=== PATIENT | male | born 1945 | race African-American/Black ===

== ENCOUNTER 2016-12-03 12:00 | Inpatient (IN) | payer BC, MEDICARE ==
[2016-12-03] VITALS (20 sets, daily range): BP systolic 120–187; BP diastolic 62–94
[~2016-12-03] VITALS: Ht 180.3 cm; Wt 74.0 kg
[2016-12-03] MEDS ORDERED: BISACODYL 10 MG SUPP PR PRN (13:15)
[2016-12-03] MEDS ORDERED: ACETAMINOPHEN TAB 650MG DOSE (2X325MG) PO PRN (13:15)
[2016-12-03] MEDS ORDERED: ONDANSETRON 4MG/2ML VIAL (J2405) IV PRN (13:15)
[2016-12-03] MEDS ORDERED: NORCO, ANEXSIA 5/325MG TABLET (HYDROcodone/ACETAMINOPHEN) PO PRN (13:15)
[2016-12-03] MEDS ORDERED: LEVALBUTEROL 1.25 MG/0.5 ML CONCENTRATE NEB NEB PRN (13:15)
[2016-12-03] MEDS ORDERED: METO100T PO (13:33)
[2016-12-03] MEDS ORDERED: METO50TA2 PO (13:33)
[2016-12-03] MEDS ORDERED: PRED10TA PO (13:34)
[2016-12-03] MEDS ORDERED: ASPI81TA7 PO (13:39)
[2016-12-03] MEDS ORDERED: LORA10TA2 PO (13:39)
[2016-12-03] MEDS ORDERED: MAGN400T2 PO (13:39)
[2016-12-03] MEDS ORDERED: POTA20TA PO (13:39)
[2016-12-03] MEDS ORDERED: NEXI40CA PO (13:39)
[2016-12-03] MEDS ORDERED: NITR4TASL SL (13:39)
[2016-12-03] MEDS ORDERED: FLOM5CAP PO (13:39)
[2016-12-03] MEDS ORDERED: HYDR25TAB PO (13:39)
[2016-12-03] MEDS ORDERED: LOSA100T36 PO (13:39)
[2016-12-03] MEDS ORDERED: GABA-279 PO (13:39)
[2016-12-03] MEDS ORDERED: ATOR40TA PO (13:39)
[2016-12-03 14:13] LABS: DIFF SLIDE NUMBER 240; MEAN CORPUSCULAR HEMOGLOBIN 29.5 pg (27.0-33.0); MEAN CORPUSCULAR HGB CONC 31.7 g/dl (32.0-36.5); MEAN CORPUSCULAR VOLUME 93.1 fl (80.0-96.0); PLATELET COUNT, AUTOMATED 351 k/mm3 (150-450); RED CELL DISTRIBUTION WIDTH 15.2 % (11.5-14.5); WHITE BLOOD COUNT 28.7 K/mm3 (4.0-10.0)
[2016-12-03 14:32] LABS: ANION GAP 6 MEQ/L (8-16); BLOOD UREA NITROGEN 18 MG/DL (7-18); CALCIUM LEVEL 8.4 MG/DL (8.8-10.2); CARBON DIOXIDE LEVEL 28 MEQ/L (21-32); CHLORIDE LEVEL 104 MEQ/L (98-107); CREATININE FOR GFR 1.01 MG/DL (0.70-1.30); GLOMERULAR FILTRATION RATE > 60.0 (>49); GLUCOSE, FASTING 99 MG/DL (80-110); POTASSIUM SERUM 4.3 MEQ/L (3.5-5.1); SODIUM LEVEL 138 MEQ/L (136-145)
[2016-12-03 14:41] LABS: ABG BASE EXCESS 3.2 (-2.0-2.0); ABG HCO3 26.5 MEQ/L (22.0-26.0); ABG PARTIAL PRESSURE CO2 35.3 mmHg (35.0-45.0); ABG PARTIAL PRESSURE O2 61.2 mmHg (75.0-100.0); ABG STANDARD HCO3 27.3 MEQ/L (22.0-26.0); ABG TOTAL CO2 27.6 MEQ/L (23.0-31.0); ABG pH (ARTERIAL) 7.493 UNITS (7.350-7.450)
[2016-12-03] MEDS: LEVALBUTEROL 1.25 MG/0.5 ML CONCENTRATE NEB NEB SCH ×2 (14:41→21:11)
[2016-12-03] MEDS ORDERED: FLUMAZENIL 0.5 MG/5 ML VIAL As Ordered ONE (15:47)
[2016-12-03] MEDS ORDERED: MIDAZOLAM INJ 2 MG/2 ML VIAL (J2250) As Ordered ONE (15:48)
[2016-12-03] MEDS ORDERED: LIDOCAINE 1% MDV 20ML VIAL As Ordered ONE (15:49)
[2016-12-03] MEDS ORDERED: KETOROLAC 30 MG/ML VIAL (J1885) As Ordered ONE (16:39)
[2016-12-03] MEDS ORDERED: MIDAZOLAM INJ 2 MG/2 ML VIAL (J2250) IV ONE (17:00)
[2016-12-03] MEDS ORDERED: KETOROLAC 30 MG/ML VIAL (J1885) IV ONE (17:00)
[2016-12-03] MEDS ORDERED: LIDOCAINE 1% MDV 20ML VIAL SC ONE (17:00)
[2016-12-03] MEDS ORDERED: NITROGLYCERIN 0.4 MG SUBL TABLET SL PRN (17:15)
[2016-12-03 18:25] LABS: RBC PLEURAL FLUID 461 (<10mm3 cells/uL); TNC PLEURAL FLUID 22255 cells/uL (0-20)
[2016-12-03 18:27] LABS: BF DIFF IF INDICATED? YES (NO)
[2016-12-03 18:45] LABS: LDH, BODY FLUID 1117 U/L (NOT ESTABLISHED); TOTAL PROTEIN, BODY FLUID 4.5 G/DL (NOT ESTABLISHED)
--- NOTE | 2016-12-03 18:57 | REP ---
AP PORTABLE CHEST: 12/03/2016: No prior studies available. Clinical history: Status post chest tube. Findings: AP seated portable chest AT 5:01 PM shows a left base chest tube. There is a small left subpulmonic pneumothorax. No apical pneumothorax. Subsegmental atelectatic or consolidated changes in the left base above the subpulmonic pneumothorax. Right lung without infiltrate, effusion or pneumothorax. The cardiomediastinal silhouette unremarkable. Oxygen tubing over the right upper chest. Bones with some degenerative change. Signed by Jb Pollard MD 12/04/2016 05:21 P
[2016-12-03 19:20] LABS: CC BF DIFF EXAM UNSPUN
[2016-12-03] MEDS: PERCOCET 5MG/325MG TAB PO PRN (20:21)
[2016-12-03] MEDS: ATORVASTATIN 20 MG TAB PO SCH (21:46)
[2016-12-03] MEDS: GABAPENTIN 100 MG CAP PO SCH (21:46)
[2016-12-03] MEDS: MAGNESIUM OXIDE 400 MG TAB (MAG-OX) PO SCH (21:46)
[2016-12-03] MEDS: HEPARIN SOD (PORCINE) 5000 UNITS/ML VIAL SC SCH (21:46)
[2016-12-03] MEDS: POTASSIUM CHLORIDE 10 MEQ SR TABLET PO SCH (21:46)
[2016-12-03] MEDS: TAMSULOSIN 0.4 MG CAP PO SCH (21:47)
[2016-12-03] MEDS: METOPROLOL TARTRATE 100 MG TAB PO SCH (21:47)
[2016-12-03] MEDS: DOCUSATE SODIUM 100 MG CAP PO SCH (21:47)
[2016-12-03] MEDS: KETOROLAC 30 MG/ML VIAL (J1885) IV SCH (22:24)
[2016-12-04] VITALS (7 sets, daily range): BP systolic 108–149; BP diastolic 55–76
[2016-12-04] MEDS: LEVALBUTEROL 1.25 MG/0.5 ML CONCENTRATE NEB NEB SCH ×4 (00:25→20:52)
[2016-12-04] MEDS: PERCOCET 5MG/325MG TAB PO PRN ×5 (01:03→21:22)
[2016-12-04] MEDS: KETOROLAC 30 MG/ML VIAL (J1885) IV SCH ×4 (04:27→23:18)
[2016-12-04 06:15] LABS: DIFF SLIDE NUMBER 79; MEAN CORPUSCULAR HEMOGLOBIN 29.3 pg (27.0-33.0); MEAN CORPUSCULAR HGB CONC 31.3 g/dl (32.0-36.5); MEAN CORPUSCULAR VOLUME 93.5 fl (80.0-96.0); PLATELET COUNT, AUTOMATED 328 k/mm3 (150-450); RED CELL DISTRIBUTION WIDTH 15.2 % (11.5-14.5); WHITE BLOOD COUNT 28.4 K/mm3 (4.0-10.0)
[2016-12-04 06:18] LABS: ABG BASE EXCESS 3.1 (-2.0-2.0); ABG HCO3 27.4 MEQ/L (22.0-26.0); ABG PARTIAL PRESSURE CO2 40.8 mmHg (35.0-45.0); ABG PARTIAL PRESSURE O2 63.6 mmHg (75.0-100.0); ABG STANDARD HCO3 27.1 MEQ/L (22.0-26.0); ABG TOTAL CO2 28.7 MEQ/L (23.0-31.0); ABG pH (ARTERIAL) 7.445 UNITS (7.350-7.450)
[2016-12-04 06:28] LABS: ANION GAP 6 MEQ/L (8-16); BLOOD UREA NITROGEN 18 MG/DL (7-18); CALCIUM LEVEL 8.2 MG/DL (8.8-10.2); CARBON DIOXIDE LEVEL 28 MEQ/L (21-32); CHLORIDE LEVEL 105 MEQ/L (98-107); CREATININE FOR GFR 1.04 MG/DL (0.70-1.30); GLOMERULAR FILTRATION RATE > 60.0 (>49); GLUCOSE, FASTING 101 MG/DL (80-110); SODIUM LEVEL 139 MEQ/L (136-145)
[2016-12-04 06:58] LABS: EOSINOPHILS 2 % (0-5)
[2016-12-04 07:00] LABS: ANISOCYTOSIS 1+; SMUDGE CELLS 4+
[2016-12-04] MEDS: DOCUSATE SODIUM 100 MG CAP PO SCH ×2 (08:46→21:21)
[2016-12-04] MEDS: LOSARTAN 50 MG TAB PO SCH (08:46)
[2016-12-04] MEDS: LORATADINE 10 MG TAB PO SCH (08:46)
[2016-12-04] MEDS: predniSONE 10 MG TAB PO SCH (08:46)
[2016-12-04] MEDS: MAGNESIUM OXIDE 400 MG TAB (MAG-OX) PO SCH ×2 (08:47→21:21)
[2016-12-04] MEDS: ASPIRIN 81 MG ENTERIC TAB PO SCH (08:47)
[2016-12-04] MEDS: hydroCHLOROthiazide 25 MG TAB PO SCH (08:47)
[2016-12-04] MEDS: METOPROLOL TARTRATE 100 MG TAB PO SCH ×2 (08:47→21:20)
[2016-12-04] MEDS: HEPARIN SOD (PORCINE) 5000 UNITS/ML VIAL SC SCH ×2 (08:48→21:22)
[2016-12-04] MEDS: GABAPENTIN 100 MG CAP PO SCH ×3 (08:48→21:20)
[2016-12-04] MEDS: POTASSIUM CHLORIDE 10 MEQ SR TABLET PO SCH ×2 (08:48→21:21)
[2016-12-04] MEDS: MOM 30ML SUSPENSION UDC PO SCH (08:48)
[2016-12-04] MEDS: PANTOPRAZOLE 40MG TAB (PROTONIX) PO SCH (08:48)
--- NOTE | 2016-12-04 12:03 | HPE ---
DATE OF ADMISSION: 12/03/2016 The is seen at the request of Dr. Maylin Arias of the [facility] for shortness of breath and refractory pleural effusion. HISTORY OF PRESENT ILLNESS: The patient is a 71-year-old black male with chronic lymphocytic leukemia who is noted, over the past 3 weeks, to become more short of breath. Around time, he became so short of breath that he sought medical attention and was found to have a pleural effusion. Antecedent to for approximately a month before, he started to notice increasing shortness of breath. He has always had an occasional cough, but the cough has gotten worse over the past 3 weeks. He is only bringing up white phlegm, however. He does not complain of fever or chills, but does have sweats and night sweats. He has lost about 30 pounds of weight over the past 6 months. At this point, he does not complain of any chest pain or chest pressure. He has no pleuritic pain as when he takes a deep breath, it does not hurt. There is no dysphagia, but he has lost all of his appetite. The effusion was attempted to be drained up in [place] and only 300 mL was able to be obtained. It was felt that the fluid was gelatinized and organized and he was sent down here for definitive treatment. PAST MEDICAL ILLNESSES: 1. Coronary artery disease, status post a stenting procedure. 2. Paroxysmal atrial fibrillation. 3. Peptic ulcer disease treated in the remote past surgically and now on proton pump inhibitors (PPIs). 4. 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 5. Chronic back pain. 6. Chronic obstructive pulmonary disease (COPD). PAST SURGICAL HISTORY: 1. Remote past orthopedic procedure on his arm. HOME MEDICATIONS: - Plavix 75 mg daily - Lopressor 50 mg three times a day - Protonix 40 mg daily - hydrochlorothiazide 25 mg daily - magnesium oxide 400 mg twice a day - Lipitor 40 mg daily - Flomax 0.5 mg nightly - Neurontin 100 mg three times a day - potassium chloride 20mEq twice a day - meloxicam 15 mg daily - losartan 100 mg daily - nitroglycerine o.4 mg as needed sublingually for chest pain. - prednisone 10 mg daily - Uroxatral 10 mg daily ALLERGIES: DOXYCYCLINE. 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 He has been to [place], [place] but no further west. No other foreign travel. EXPOSURES: He has a dog and two cats at home. No birds. 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 FAMILY HISTORY: Father at 91. Mother at 84 "of old age". HABITS: Smoked 1-1/2 pack per day for about 5 years. Quit many years ago. Does not drink at this point in time. REVIEW OF SYSTEMS: Constitutional: See history of present illness. Eyes: Without diplopia. He does wear glasses. 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 It came back and he was told not to worry about it. He cannot remember it being worked up. He has amaurosis fugax. No prior jaundice. Nose: Without epistaxis. Mouth: Has his own teeth. Respiratory: See history of present illness. Cardiac: See history of present illness. In the last 3 weeks, he has had orthopnea and paroxysmal nocturnal dyspnea. He also has occasional leg edema, which comes and goes. Most of the time it is relieved by going to bed. No intermittent claudication. GI: Without nausea, vomiting or diarrhea. He has occasional constipation. Without melena or hematochezia or abdominal pain, hematemesis. : Without dysuria or hematuria. He does have benign prostatic hypertrophy (BPH). Endocrine: Without diabetes. Without thyroid disease. Neurologic: Without paresthesias, paralysis or seizures at this point in time. He is fully recovered from his stroke. Lymphatics: Without lumps or bumps in his neck, axilla or groin that he has noted. Hematologic: He does have a prolonged bleeding times. Psychiatric: Without pathological anxieties, psychosis or depressions. PHYSICAL EXAMINATION: A well-developed, cachectic black male in no acute distress laying comfortably in bed. VITAL SIGNS: Temperature is 98.8, pulse 78 and in sinus rhythm. Respiratory rate is 18 without the use of accessory muscles. He is 95% saturated on room air and his blood pressure is 148/86. Eyes: Pupils round, equal and reactive to light. Extraocular muscles intact. Sclerae are anicteric. Nose without deformity. Mouth show mucous membranes pink and moist. Lips and commissures without lesions. He has a number of missing teeth but they look to be in good repair. There is no thrush. Head is normocephalic. Neck is supple. There is no jugular venous distention and no subcutaneous emphysema. Trachea is midline. There is no lymphadenopathy or thyromegaly. He has 2+ carotid upstrokes. There are no bruits. Lungs show markedly decreased breath sounds on the left side with E/A egophony on the left side. Percussion note is dull all the way across the left hemithorax. Abdomen is soft and nontender. Bowel sounds are positive. There is no hepatomegaly. No CVA tenderness. Cardiac is without murmurs, clicks or gallops. I cannot feel his PMI. S1, S2 are normal. Extremities show no pretibial edema. No calf tenderness or differential swelling of the upper extremites. Skin is warm, dry and perfused without cyanosis or mottling including that of the nail beds and knees. Neurologic shows II-XII intact along with gross motor and gross sensation intact. Gait is not tested. Psychiatric showed him to be awake, alert and oriented times three with appropriate and affect and conversational. His white count today is 28.7 with a hemoglobin and hematocrit of 8.6 and 27.2. Platelet count is 351. Differential shows 13% neutrophils, 87% lymphocytes. His hemoglobin and hematocrit at [facility] was 8.9 and 29.1 with a white count of 34.3. Electrolytes are normal with a BUN and creatinine of 18 and 1.01 and a glucose of 99 and a calcium of 8.4. Blood gases show a pH of 7.49, pCO2 35, PO2 61 with a base excess of 3.2. His chest CT done at [facility] on shows a large left-sided pleural effusion. There is no mediastinal shift. I see no other masses in the lung. There is underlying compression of both the upper and lower lobes, and particularly in the lower lobe. I do not see an adrenal mass. IMPRESSION: 1. By reports, hemorrhagic pleural effusion, large. 2. Chronic lymphocytic leukemia. 3. Hypertension. 4. Benign prostatic hypertrophy. 5. History of amaurosis fugax. 6. History of supraventricular tachycardia. 7. History of hypokalemia. 8. Anemia. 9. Chronic back pain. 10. History of coronary artery disease. 11. History of cerebrovascular disease. PLAN/DISCUSSION: The first order of business would be to remove the fluid from his chest. I am concerned that it may have been there for quite a number of weeks and his lung may be entrapped. The only way we are going to tell is draining the entire fluid out and putting his chest tube on suction. Because of the increased volume of fluid, he may go into postexpansion pulmonary edema for which we will have to observe carefully. We will send a specimen for all the records for cultures, hematology's, cytologies and bacteriology. The effusion at [facility] is reported as hemorrhagic and I do not know whether that is secondary to his chronic lymphocytic leukemia or whether it is secondary to his Plavix. It should be noted that on my inspection of the chest CT, it does not look as if this is an organized effusion but rather fairly homogeneous. I am suspected that I will be able to drain most of it with a chest tube.
--- NOTE | 2016-12-04 13:32 | REP ---
Chest x-ray: Two views. History: Pleural effusion. Comparison study is from December 03, 2016. Findings: Left pleural drainage catheter is seen coursing posteriorly. There is slight blunting of the left and right pleural angles. There is a small bullous or bleb in each lung apex, unchanged. There is no visible pneumothorax. Heart is not enlarged. Impression: Left chest tube remains in place. Small amount of pleural fluid bilaterally. Pleural based opacity is seen along the left lateral chest wall unchanged. Signed by Shadi Daniels MD 12/04/2016 01:47 P
--- NOTE | 2016-12-04 14:57 | RO ---
DATE OF PROCEDURE: 12/03/2016 PREPROCEDURE DIAGNOSIS: Large left pleural effusion. POSTPROCEDURE DIAGNOSIS: Large left pleural effusion. SURGEON: Arnie Dobbins MD PROCEDURE: Insertion of left posterolateral chest tube. ANESTHESIA: FINDINGS: The chest drained 3 liters of serosanguineous fluid. DESCRIPTION OF PROCEDURE: Under satisfactory moderate sedation achieved eventually with 3 mg of Versed, the patient was prepped and draped in the usual sterile fashion. Incision was made after infiltrating the skin, subcutaneous tissue and pleura with 1% Xylocaine. A tunnel was created in the chest in and around the sixth intercostal space. A #24 chest tube was placed without difficulty and the above findings were noted. The chest tube was secured to the chest wall with #2 Tevdek suture. The chest tube was connected to the Pleur-evac. The patient tolerated the procedure well, and chest x-ray is pending.
--- NOTE | 2016-12-04 17:03 | REP ---
CAROTID ULTRASOUND: Real-time ultrasound evaluation and duplex Doppler interrogation of the extracranial carotid vasculature is performed. There is mild plaquing and narrowing in both carotid bulbs extending into the internal and external carotid arteries. Luminal narrowing is less than 50%. There is no evidence of hemodynamically significant stenosis of either internal carotid artery. Normal flow velocities are seen. The vertebral arteries demonstrate normal direction of flow. RIGHT LEFT Peak systolic velocity ICA 87.3 cm/s 102.4 cm/s End diastolic velocity ICA 23.1 cm/s 32.6 cm/s Peak systolic velocity CCA 101.8 cm/s 124.3 cm/s Peak systolic velocity ECA 73.7 cm/s 129.1 cm/s ICA/CCA ratio 0.86 0.82 IMPRESSION: Bilateral luminal narrowing of the internal carotid arteries less than 50%. No evidence of hemodynamically significant stenosis. Signed by Chip Batista MD 12/04/2016 04:55 P
[2016-12-04] MEDS: TAMSULOSIN 0.4 MG CAP PO SCH (21:20)
[2016-12-04] MEDS: ATORVASTATIN 20 MG TAB PO SCH (21:21)
[2016-12-05] MEDS: LEVALBUTEROL 1.25 MG/0.5 ML CONCENTRATE NEB NEB SCH ×3 (02:20→14:00)
[2016-12-05 04:00] VITALS: BP 135/65
[2016-12-05] MEDS: PERCOCET 5MG/325MG TAB PO PRN ×2 (04:11→12:21)
[2016-12-05 05:16] LABS: DIFF SLIDE NUMBER 47; MEAN CORPUSCULAR HEMOGLOBIN 29.1 pg (27.0-33.0); MEAN CORPUSCULAR HGB CONC 31.1 g/dl (32.0-36.5); MEAN CORPUSCULAR VOLUME 93.5 fl (80.0-96.0); PLATELET COUNT, AUTOMATED 315 k/mm3 (150-450); WHITE BLOOD COUNT 23.6 K/mm3 (4.0-10.0)
[2016-12-05 05:29] LABS: ANION GAP 6 MEQ/L (8-16); BLOOD UREA NITROGEN 22 MG/DL (7-18); CARBON DIOXIDE LEVEL 29 MEQ/L (21-32); CHLORIDE LEVEL 106 MEQ/L (98-107); CREATININE FOR GFR 1.09 MG/DL (0.70-1.30); GLOMERULAR FILTRATION RATE > 60.0 (>49); GLUCOSE, FASTING 109 MG/DL (80-110); POTASSIUM SERUM 4.4 MEQ/L (3.5-5.1); SODIUM LEVEL 141 MEQ/L (136-145)
[2016-12-05] MEDS: KETOROLAC 30 MG/ML VIAL (J1885) IV SCH ×2 (05:56→11:14)
[2016-12-05 06:30] LABS: NUCLEATED RED BLOOD CELL 1 % (0-0)
[2016-12-05 06:31] LABS: ANISOCYTOSIS 1+
[2016-12-05 06:32] LABS: HYPOCHROMASIA 1+; SMUDGE CELLS 3+
[2016-12-05 08:00] VITALS: BP 139/71
[2016-12-05] MEDS ORDERED: PREVNAR 13 VACCINE SYRINGE (CPT CODE:90670) IM ONE (09:00)
[2016-12-05] MEDS: LOSARTAN 50 MG TAB PO SCH (09:18)
[2016-12-05] MEDS: MOM 30ML SUSPENSION UDC PO SCH (09:18)
[2016-12-05 09:19] VITALS: BP 139/71
[2016-12-05] MEDS: DOCUSATE SODIUM 100 MG CAP PO SCH (09:19)
[2016-12-05] MEDS: LORATADINE 10 MG TAB PO SCH (09:19)
[2016-12-05] MEDS: METOPROLOL TARTRATE 100 MG TAB PO SCH (09:19)
[2016-12-05] MEDS: ASPIRIN 81 MG ENTERIC TAB PO SCH (09:19)
[2016-12-05] MEDS: PANTOPRAZOLE 40MG TAB (PROTONIX) PO SCH (09:19)
[2016-12-05] MEDS: hydroCHLOROthiazide 25 MG TAB PO SCH (09:19)
[2016-12-05] MEDS: MAGNESIUM OXIDE 400 MG TAB (MAG-OX) PO SCH (09:20)
[2016-12-05] MEDS: GABAPENTIN 100 MG CAP PO SCH (09:20)
[2016-12-05] MEDS: HEPARIN SOD (PORCINE) 5000 UNITS/ML VIAL SC SCH (09:20)
[2016-12-05] MEDS: POTASSIUM CHLORIDE 10 MEQ SR TABLET PO SCH (09:28)
[2016-12-05] MEDS: predniSONE 10 MG TAB PO SCH (09:28)
--- NOTE | 2016-12-05 10:00 | REP ---
Chest x-ray: Two views. History: Pleural effusion. Comparison chest x-ray December 04, 2016. Findings: EKG monitoring electrodes overlie the chest. A left pleural drainage catheter is noted posterolaterally. There is a loculated hydropneumothorax at the left base laterally. An air-fluid level persists within this collection. Bullous changes are seen at the apices bilaterally unchanged. No new infiltrate. Impression: No significant change from the previous day's radiographs. Signed by Shadi Daniels MD 12/05/2016 10:26 A
--- NOTE | 2016-12-05 10:37 | IPN ---
DATE: 12/04/2016 Mr. Pedro can certainly breathe a lot better today after taking off 3 liters of serosanguineous fluid. His chest x-ray just after the procedure did not show the lungs completed expanded to the chest wall. I therefore placed him on 40 cm of suction. Today, he is still not completely expanded to the chest wall. His pain is being well controlled at the chest tube insertion site. His vital signs show a maximum temperature (t-max) of 98.4 with a heart rate that ranges between 78 and 82 in a sinus rhythm, respiratory rate of 19 to 24 without the use of accessory muscles, who is 98 to 100% saturated on 2 liters nasal cannula, and his blood pressure is ranging between 149/75 to 118/64. His intake and output over the past 24 hours has been recorded as 900 in and 3610 out for a negativity of 2700 mL. He has put out 55 mL in the last 15 hours from the chest tube. He weighs 77.1 kg today compared to 79.9 kg yesterday. PHYSICAL EXAMINATION: LUNGS: He has rales and rhonchi in the left side. Percussion note is full to the diaphragm. Right side shows normal vesicular sounds. CARDIAC EXAM: Without murmurs, clicks, gallops or rubs. I cannot feel his point of maximum impulse (PMI). S1, S2 are normal. ABDOMEN: Soft, nontender. Bowel sounds positive. There is no hepatomegaly. No costovertebral angle tenderness. EXTREMITIES: Show no pretibial edema. No calf tenderness. No differential swelling of the upper extremities. SKIN: Warm, dry and perfused without cyanosis or mottling, including that of the nail beds and knees. NECK: Supple. There is no jugular venous distention. No subcutaneous emphysema. Trachea is midline. MOUTH: Shows his mucous membranes to be pink and moist. Lips and commissures without lesions. There is no thrush. EYES: Show his pupils to be equal and reactive. Extraocular motion intact. Sclerae anicteric. NEUROLOGIC: Shows II through XII intact with gross motor and gross sensation intact. Gait is not tested. PSYCHIATRIC: Shows him to be awake and alert, oriented times three with appropriate mood and affect and conversational. His white count today is 20.4, essentially unchanged from yesterday. Hemoglobin and hematocrit are 8.3 and 26.5, slightly down from yesterday of 8.6 and 27.2. Platelet count is 328 and stable. Differential shows 16% neutrophils, 78% lymphocytes, 2% monocytes. There are no immature forms and no toxic granulations. His electrolytes are normal with a BUN and creatinine of 18 and 1.04, glucose of 101 and calcium 8.2. His pleural fluid has returned with a pH of 7.50 with an LDH of 117 with a corresponding fluid LDH of 287. Total nucleated cell count is 2200, 95% are lymphocytes, 4% are monocytes, and 1% are neutrophils. This therefore looks to be an exudative lymphocytic effusion and the top of it hemorrhagic. His chest x-ray today shows his left lower lobe still entrapped. It has not fully expanded to the chest wall. Chest tube is in good place posteriorly. I see no other infiltrates, but he does have some atelectatic compressive changes in that portion of the left lower lobe that is not expanded. IMPRESSION: 1. Chronic lymphocytic leukemia. 2. Large pleural effusion drained with a chest tube. 3. Hypertension. 4. Benign prostatic hypertrophy (BPH). 5. History of amaurosis fugax. 6. History of supraventricular tachycardia. 7. History of hypokalemia. 8. Anemia. 9. Chronic back pain. 10. History of coronary artery disease. 11. History of cerebrovascular disease. PLAN AND DISCUSSION: I am going to try and get that lung back to the chest wall, although I am starting to have my doubts that it has not come back in the first 24 hours. I will put him on continuous positive airway pressure (CPAP) and EZ-PAP over the next couple of days and keep his suction at -40. I will also undertake a carotid ultrasound, as he has the unexplained history of amaurosis fugax.
[2016-12-05 12:00] VITALS: BP 136/76
[2016-12-05] MEDS ORDERED: ACET65TA PO (13:00)
--- NOTE | 2016-12-06 15:09 | DSES ---
DATE OF ADMISSION: 12/03/2016 DATE OF DISCHARGE: 12/05/2016 DISCHARGE DIAGNOSES: 1. Chronic lymphocytic leukemia. 2. Large pleural effusion draining with a chest tube, exudative and not malignant but lymphocytic. 3. Benign prostatic hypertrophy (BPH). 4. Hypertension. 5. History of amaurosis fugax. 6. History of supraventricular tachycardia. 7. History of hypokalemia. 8. Anemia. 9. Chronic back pain. 10. History of coronary artery disease. 11. History of cerebrovascular disease. 12. Lung entrapment. HOSPITAL COURSE: The patient was referred to this institution by Dr. Maylin Arias from the [facility] for a recurrent pleural effusion. The patient is a 71-year-old black male with known chronic lymphocytic leukemia (CLL) who noted over the past 3 weeks to become more short of breath. He had an occasional cough prior to 3 weeks ago, but the cough has gotten worse over the last 3 weeks. He brings up white phlegm and only scant amounts. There were no fever or chills, but he did have sweats and night sweats. He has lost 30 pounds of weight over the past 6 months. His chest x-ray showed a very large pleural effusion, which was confirmed by a CT scan. The patient underwent a chest tube insertion, where over 3000 mL of serosanguineous fluid was removed. It was quite sanguinous but certainly not rome blood. After the chest tube insertion, his breathing markedly improved. The chest tube was kept in until he drained only 110 mL. His admission weight was 79.9 kg, and his discharge weight is 74 kg. The chest tube was removed, and he was discharged on the same day with instructions to change dressing should it become saturated and to remove the dressing tomorrow and keep it open to air. His discharge white count is 23.6 with 69% lymphocytes, 28% neutrophils. There were no immature forms. Hemoglobin and hematocrit are 7.9 and 25.3, respectively. His discharge electrolytes are normal with a BUN and creatinine of 22 and 1.09 and a glucose of 109 and a calcium of 8.0. Discharge chest x-ray shows the lung to be entrapped. It did not move during the 3 days he was in the hospital. While the chest tube was in good place, he had a small air fluid level at the costophrenic angle on the left, and I suspect that is going to fill back up to fill the space. The only question is, is whether the fluid will continue to accumulate and again compress the remaining expanded lung. Should that happen, will need to put a PleurX catheter in him. I will see him back in post-hospitalization followup in 10 days with a chest x-ray, at which time the pleural effusion would have declared itself. If it does re-accumulate, will place a PleurX catheter. He is being discharged on his home medications, which include aspirin 81 mg every day, atorvastatin 40 mg nightly, Nexium 40 mg every day, gabapentin 100 mg three times a day, hydrochlorothiazide 20 mg every day, loratadine 10 mg every day, Losartan 100 mg every day, potassium oxide 400 mg twice a day, metoprolol 100 mg twice a day, along with Nitrostat 0.4 mg sublingually as needed chest pain, Klor-Con 20 mEq twice a day, prednisone 10 mg every day, and Flomax 0.4 mg nightly.
== END 2016-12-05 15:00 | disposition home or self-care (01) | DRG 187 ==
LOC: M PCU 12:50
PROVIDERS: ADMIT Thoracic Surgery (Cardiothoracic Vascular Surgery); ATTEND Thoracic Surgery (Cardiothoracic Vascular Surgery)
PROC: 0W9B30Z Drainage of Left Pleural Cavity with Drainage Device, Percutaneous Approach (ICD-10-PCS; principal; 2016-12-03)
DX: J90 Pleural effusion, not elsewhere classified (principal); G45.3 Amaurosis fugax; C91.10 Chronic lymphocytic leukemia of B-cell type not having achieved remission; I25.10 Atherosclerotic heart disease of native coronary artery without angina pectoris; I48.0 Paroxysmal atrial fibrillation; J44.9 Chronic obstructive pulmonary disease, unspecified; M54.9 Dorsalgia, unspecified; N40.0 Benign prostatic hyperplasia without lower urinary tract symptoms; I10 Essential (primary) hypertension; E87.6 Hypokalemia; D64.9 Anemia, unspecified; Z86.73 Personal history of transient ischemic attack (TIA), and cerebral infarction without residual deficits; Z79.02 Long term (current) use of antithrombotics/antiplatelets; Z79.52 Long term (current) use of systemic steroids; Z87.891 Personal history of nicotine dependence; Z79.899 Other long term (current) drug therapy; Z88.1 Allergy status to other antibiotic agents; Z79.82 Long term (current) use of aspirin

== ENCOUNTER → 2016-12-15 | Outpatient (CLI) | payer MEDICARE ==
[~2016-12-15] MED LIST: ACET65TA PO; ASPI81TA7 PO; ATOR40TA PO; FLOM5CAP PO; GABA-279 PO; HYDR25TAB PO; LORA10TA2 PO; LOSA100T36 PO; MAGN400T2 PO; METO100T PO; METO50TA2 PO; NEXI40CA PO; NITR4TASL SL; POTA20TA PO; PRED10TA PO
--- NOTE | 2016-12-15 10:47 | REP ---
Chest x-ray: Two views. History: Pleural effusion. Comparison study: December 05, 2016. Findings: There is blunting of the left lateral and posterior pleural angles consistent with left pleural effusion. This is slightly larger than on the prior chest x-ray. The chest tube seen at the time of the December 05, 2016 study is no longer present. There is a small residual air-fluid level in the left lateral pleural angle. This has decreased in size. The right lung remains clear. Impression: Small somewhat loculated left-sided hydropneumothorax. Post removal left chest tube. Signed by Shadi Daniels MD 12/15/2016 01:08 P
== END ==
LOC: M SMT 10:07
PROVIDERS: ATTEND Thoracic Surgery (Cardiothoracic Vascular Surgery)
DX: J94.8 Other specified pleural conditions (principal); J91.8 Pleural effusion in other conditions classified elsewhere